=== PATIENT | female | born 1950 | race Two or more races ===

== ENCOUNTER 2018-05-15 20:19 | Emergency (ER) | payer MEDICARE, OTHER ==
[~2018-05-15] VITALS: Ht 160 cm; Wt 77.1 kg
[2018-05-15] MEDS ORDERED: MELO-105 PO (20:44)
[2018-05-15] MEDS ORDERED: BACL5TAB PO (20:44)
[2018-05-15 21:06] LABS: *BILIRUBIN,URIN NEGATIVE (NEGATIVE); *BLOOD, URINE 2+ (NEGATIVE); *CLARITY,URINE SLIGHTLY CLOUDY (CLEAR); *COLOR,URINE YELLOW (YELLOW); *KETONES,URINE NEGATIVE (NEGATIVE); *PROTEIN,URINE NEGATIVE (NEGATIVE); *UROBILINOGEN,URINE 0.2 E.U./dl (NORMAL); LEUKOCYTE ESTERASE ,URINE 1+ (NEGATIVE); NITRITE, URINE NEGATIVE (NEGATIVE); UGLUCOSE NEGATIVE (NEGATIVE)
[2018-05-15 21:24] LABS: BACTERIA,URINE FEW /HPF (NONE SEEN); SQUAMOUS EPITHELIAL CELL,UR FEW /HPF (NONE SEEN); WBC,URINE 20-50 /HPF (0-3)
[2018-05-15] MEDS: PHENAZOPYRIDINE HCL 100 MG TABLET PO ONE (22:04)
[2018-05-15] MEDS: CEPHALEXIN MONOHYDRATE 500 MG CAPSULE PO ONE (22:04)
[2018-05-15] MEDS ORDERED: CEPHALEXIN MONOHYDRATE 500 MG CAPSULE ONE (22:05)
[2018-05-15] MEDS ORDERED: PHENAZOPYRIDINE HCL 100 MG TABLET ONE ×2 (22:05)
--- NOTE | 2018-05-15 22:07 | NUR ---
Patient discharged to home in stable conditon. Written and verbal after care instructions given. Patient verbalizes understanding of instructions.
[2018-05-15 22:18] VITALS: BP 141/79
== END 2018-05-15 22:21 | disposition home or self-care (01) ==
LOC: ER 20:21
DX: N39.0 Urinary tract infection, site not specified (principal); I10 Essential (primary) hypertension
CPT/HCPCS: 87086; A4663